=== PATIENT | female | born 1960 | race Caucasian/White ===

== ENCOUNTER → 2016-05-31 | Outpatient (CLI) | payer OTHER, MEDICAID | LOC: BMCIMAGING 15:19 | PROVIDERS: ATTEND Internal Medicine | DX: Z13.820 Encounter for screening for osteoporosis (principal); M85.80 Other specified disorders of bone density and structure, unspecified site ==

== ENCOUNTER 2016-11-29 21:26 | Emergency (ER) | payer OTHER, MEDICAID ==
[2016-11-29 21:42] VITALS: RESP 18; TEMP 98.6; O2SAT 98
--- NOTE | 2016-11-29 22:02 | CPEKG ---
Heart Rate: 80 RR Interval: 750 P-R Interval: 160 QRSD Interval: 92 QT Interval: 396 QTC Interval: 457 P [place]: 63 QRS [place]: -11 T Wave [place]: 10 EKG Severity - BORDERLINE ECG - EKG Impression: SINUS RHYTHM EKG Impression: BORDERLINE T ABNORMALITIES, ANTERIOR LEADS Electronically Signed By: Irene Oshea 01-Dec-2016 06:46:29
--- NOTE | 2016-11-29 22:28 | EDPHY ---
HPI/HX/ROS/PE/MDM Narrative: CHIEF COMPLAINT:Dizzy, head injury HPI: The patient is a 56-year-old female with a history of MS. She has been working with her PT on her inner ear and balance problems recently which have worsened her chronic vertigo. This evening she had an episode of vertigo when she turned her head abruptly which caused her to fall over and hit her left occiput. She denies LOC. She denies vomiting, numbness or new weakness. No neck pain or injury. REVIEW OF SYSTEMS: Aside from elements discussed in the HPI, a comprehensive 10-point review of systems was reviewed and is negative. PMH:MS SOCIAL HISTORY: Some marijuana use. Denies other drugs. PHYSICAL EXAM: General:Patient is alert, in no acute distress. ENT:Eyes are normal to inspection. ENT inspection normal. Neck: Normal inspection. Full range of motion. Respiratory:No respiratory distress. Breath sounds normal bilaterally. Cardiovascular: Regular rate and rhythm. Strong peripheral pulses. Normal cap refill. Abdomen:The abdomen is nontender to palpation. There are no peritoneal signs. There are normal bowel sounds. Back: Normal to inspection. No tenderness to palpation. Skin: Normal color. No rash. Warm and dry. Extremities: Normal appearance. Full range of motion. Neuro: Oriented x3. Normal motor function. Normal sensory function. No dysmetria. (Atif Sandoval) MDM: This patient presents with an episode of vertigo that is complicated by head injury. Given the fact that she is not on anticoagulants, did not lose consciousness and is essentially asymptomatic now, I do not think a CT scan of her head is indicated. The patient is comfortable with this plan. We discussed strict return precautions. The patient feels that she is dehydrated so we have agreed to give her some IV fluid. (Atif Sandoval) 11:52p- the patient has been stable. I have followed up on the chemistry panel which is unremarkable. She would like to go home and will be discharged in good condition. (Irene Oshea) - Data Points Laboratory Results: Laboratory Results 11/29/16 22:30 11/29/16 22:30 Sodium 136 mEq/L mEq/L (134-144) Potassium 3.9 mEq/L mEq/L (3.5-5.2) Chloride 101 mEq/L mEq/L (97-110) Carbon Dioxide 22 mEq/l mEq/l (22-31) Anion Gap 13 mEq/L mEq/L (8-16) BUN 22 mg/dL mg/dL (7-23) Creatinine 0.9 mg/dL mg/dL (0.6-1.0) Estimated GFR > 60 Glucose 134 mg/dL H mg/dL (70-100) Calcium 10.1 mg/dL mg/dL (8.5-10.4) Medications Given: Discontinued Medications Sodium Chloride (Ns) 1,000 mls @ 3,000 mls/hr IV ONCE ONE Stop: 11/29/16 23:05 Last Admin: 11/29/16 22:47 Dose: 1,000 mls Ondansetron HCl (Zofran Odt 4 Mg Prepack#2) 1 btl TAKEHOME EDNOW ONE Stop: 11/29/16 23:17 Last Admin: 11/29/16 23:45 Dose: 1 btl General Time Seen by Provider: 11/29/16 21:52 Initial Vital Signs: Initial Vital Signs Temperature (C) 37 C 11/29/16 21:39 Heart Rate 90 11/29/16 21:39 Respiratory Rate 18 11/29/16 21:39 Blood Pressure 168/92 H 11/29/16 21:39 O2 Sat (%) 98 11/29/16 21:39 O2 Delivery Mode Room Air Allergies/Adverse Reactions: banana Allergy (Verified 05/13/15 10:22) melon Allergy (Verified 05/13/15 10:22) Penicillins Allergy (Verified 05/13/15 10:22) Home Medications: Medication Instructions Recorded Atorvastatin Calcium 05/13/15 Escitalopram Oxalate 05/13/15 Levothyroxine 05/13/15 Meclizine HCl [Meclizine HCl 25 mg 25 mg PO BID #10 tab 05/13/15 (RX,OTC)] Metformin HCl 05/13/15 Modafinil 05/13/15 Montelukast Sodium 05/13/15 [place] 3 Fish Oil Softgel 05/13/15 Tecfidera 05/13/15 Vitamin D3 05/13/15 buPROPion 05/13/15 traZODONE 05/13/15 Albuterol 11/29/16 Lansoprazole 11/29/16 Loratadine 11/29/16 Reclast 11/29/16 Departure - Departure Disposition: Home, Routine, Self-Care Clinical Impression: Vertigo, Head injury, Scalp hematoma Condition: Good Instructions: Ondansetron (By mouth), Head Injury (ED) Additional Instructions: Follow-up with your primary doctor within 72 hours. Return to the Emergency Department for severe headache, vomiting, vision changes, confusion, fever or other concerns. Referrals: Amie Agee MD [Primary Care Provider] - As per Instructions
[2016-11-29] MEDS ORDERED: NS 1,000 ML IV ONE (22:46)
[2016-11-29] MEDS ORDERED: ONDANSETRON 4MG PREPACK#2 BTL TAKEHOME ONE (23:16)
[2016-11-29 23:22] LABS: ANION GAP 13 mEq/L (8-16); CALCIUM 10.1 mg/dL (8.5-10.4); CARBON DIOXIDE 22 mEq/l (22-31); CHLORIDE 101 mEq/L (97-110); CREATININE 0.9 mg/dL (0.6-1.0); GLOMERULAR FILTRATION RATE > 60; GLUCOSE 134 mg/dL (70-100); POTASSIUM 3.9 mEq/L (3.5-5.2); SODIUM 136 mEq/L (134-144)
[2016-11-30 00:18] VITALS: BP 139/82; PULSE 72
== END 2016-11-30 00:18 | disposition home or self-care (01) ==
DX: S09.90XA Unspecified injury of head, initial encounter (principal); S00.03XA Contusion of scalp, initial encounter; R42 Dizziness and giddiness; W01.198A Fall on same level from slipping, tripping and stumbling with subsequent striking against other object, initial encounter

== ENCOUNTER → 2018-05-23 | Outpatient (CLI) | payer OTHER, MEDICAID | LOC: BMCIMAGING 12:56 | PROVIDERS: ATTEND Internal Medicine | DX: R63.4 Abnormal weight loss (principal); E61.1 Iron deficiency ==

== ENCOUNTER → 2018-08-10 | Outpatient (CLI) | payer OTHER, MEDICAID | LOC: FIMAGING 12:45 ==